=== PATIENT | male | born 1945 | race Caucasian/White ===

== ENCOUNTER → 2022-03-24 | Outpatient (CLI) | payer MEDICARE, BC ==
--- NOTE | 2022-03-24 09:23 | CT ---
EXAMINATION TYPE: CT chest wo con CT DLP: 361 mGycm, Automated exposure control for dose reduction was used. DATE OF EXAM: 03/24/2022 8:55 AM COMPARISON: None. CLINICAL INDICATION:Male, 76 years old with history of R91.1 lung nodule; TECHNIQUE: Multiple axial images were obtained through the chest without IV contrast. Lack of IV or o ral contrast limits evaluation of solid and hollow organ viscera. FINDINGS: LUNGS/ PLEURA: Biapical pleural-parenchymal scarring. Scattered left upper lobe reticular opacities a nd lingular scarring. Right lower lobe 1 cm nodular density (series 4, image 41). 6 mm groundglass no dule along the right minor fissure favored to represent intrafissural lymph node (series 4, image 33) . Posterior right upper lobe calcified plaque. No pneumothorax or pleural effusion. Mild centrilobul ar emphysematous changes. AIRWAY: Patent and unremarkable.. HEART: Size within normal limits. No pericardial effusion. Three-vessel coronary artery calcification s identified.. MEDIASTINUM: No gross evidence of adenopathy. VASCULATURE: No aortic aneurysm. Atherosclerotic calcification of the aorta and its branches. MUSCULOSKELETAL: No acute osseous abnormalities. Mild degenerative changes of the spine SOFT TISSUES/LYMPH NODES: No axillary lymphadenopathy. Bilateral gynecomastia. LOWER NECK: No significant findings. UPPER ABDOMEN: Hepatic cysts measuring up to 1.5 cm. Post cholecystectomy. Colonic diverticulosis wit hout evidence for acute diverticulitis. IMPRESSION: 1. Scattered left upper lobe reticular opacities with right lower lobe 1 cm nodular density. Findings likely relate to an infectious/inflammatory process. Consider follow-up CT chest in 6-12 months. 2. Mild emphysematous changes. 3. Colonic diverticulosis without evidence for acute diverticulitis.
== END | disposition home or self-care (01) ==
LOC: RADCTMAIN 08:32
PROVIDERS: ATTEND Internal Medicine
DX: R91.1 Solitary pulmonary nodule (principal)
CPT/HCPCS: 71250

== ENCOUNTER → 2022-05-06 | Outpatient (CLI) | payer MEDICARE, BC | END | disposition home or self-care (01) | LOC: RADXRMAIN 07:23 | PROVIDERS: ATTEND Internal Medicine Critical Care Medicine | DX: Z53.9 Procedure and treatment not carried out, unspecified reason (principal) ==

== ENCOUNTER → 2022-05-20 | Outpatient (CLI) | payer MEDICARE, BC ==
--- NOTE | 2022-05-23 06:39 | PE ---
EXAMINATION TYPE: PET CT fusion skull to thigh DATE OF EXAM: 05/20/2022 COMPARISON: Chest CT March 24, 2022 HISTORY: Abnormal CT, solitary pulmonary nodule. TECHNIQUE: Following the intravenous administration of 11.76 mCi of F-18 FDG, whole body images are performed from the skull base to the midthigh. Images are reviewed on the computer in the coronal, a xial, and sagittal planes. Reconstructed rotating images are created on independent workstation and reviewed on the computer. A localization and attenuation correction CT is performed in conjunction with the PET scan. Blood glucose level = 41 SCAN: Initial Scan FINDINGS: SKULL BASE AND NECK: No areas of abnormal hypermetabolic uptake. CHEST, MEDIASTINUM, AND HILAR REGION: Mild to moderate biapical pleural/parenchymal scarring redemons trated. Stable 1.1 x 0.6 cm groundglass nodule posterior right lower lobe axial image 109 is ametabol ic. Dependent atelectasis current study. No areas of abnormal hypermetabolic uptake. ABDOMEN AND PELVIS: Normal excretion. Nonspecific bowel uptake. No adrenal masses. No abnormal hyperm etabolic uptake. OSSEOUS STRUCTURES: No abnormal hypermetabolic uptake. OTHER CT: Mild to moderate calcified plaque bilateral carotid bulb level. Moderate to severe coronary artery calcification. Cholecystectomy clips are seen. There is 1.1 cm hypodense lesion in the liver axial image 159 favorin g benign thin-walled cyst. Moderate to severe calcified plaque of the aorta extends into branch vesse ls fecal prominent cecum. Diverticula in the left and sigmoid colon. Mildly enlarged prostate consist ent with BPH. Moderate-sized fat-containing bilateral inguinal hernias. Disc space narrowing with vac uum disc phenomenon at lumbosacral junction. IMPRESSION: No areas of abnormal hypermetabolic uptake to suggest malignancy. Advise CT and/or PET CT follow-up in 6-12 months time to document stability of right lower lobe lesion.
== END | disposition home or self-care (01) ==
LOC: RADXRMAIN 10:32
PROVIDERS: ATTEND Internal Medicine Critical Care Medicine
DX: R91.1 Solitary pulmonary nodule (principal)
CPT/HCPCS: 78815; A9552

== ENCOUNTER → 2022-07-08 | Outpatient (CLI) | payer MEDICARE, BC ==
--- NOTE | 2022-07-08 14:20 | XR ---
EXAMINATION TYPE: XR Hip Bilateral and AP pelvis DATE OF EXAM: 07/08/2022 COMPARISON: Prior PET/CT May 20, 2022 HISTORY: Pelvic and bilateral hip pain for 3 to 4 years. TECHNIQUE: A single AP view of the pelvis is obtained. Two views of the bilateral hips are obtained. FINDINGS: There is no acute fracture/dislocation evident in the pelvis. The sacroiliac joints appea r symmetric and unremarkable. Pubic symphysis is intact. Prominent left-sided pelvic phleboliths rede monstrated. Two views of bilateral hip show no acute fracture or dislocation. No focal lytic or sclerotic lesion seen in the proximal femurs bilaterally. There is moderate to severe axial joint space loss in both hips with moderate acetabular spurring bilaterally redemonstrated. The overlying soft tissue is unre markable bilaterally. IMPRESSION: As above.
== END | disposition home or self-care (01) ==
LOC: RADXRMAIN 13:37
PROVIDERS: ATTEND Internal Medicine
DX: M25.551 Pain in right hip (principal); M25.552 Pain in left hip; R10.2 Pelvic and perineal pain
CPT/HCPCS: 73521

== ENCOUNTER → 2022-12-12 | Outpatient (CLI) | payer MEDICARE, BC ==
--- NOTE | 2022-12-12 14:37 | CT ---
EXAMINATION TYPE: CT chest w con DATE OF EXAM: 12/12/2022 COMPARISON: 03/24/2022 HISTORY: lung nodule CT DLP: 306.9 mGycm Automated exposure control for dose reduction was used. CONTRAST: CT scan of the chest is performed with IV Contrast, patient injected with 100 mL of Isovue 300. FINDINGS: LUNGS: 9.5 mm pulmonary nodule right lower lobe image 39 sequence 4 is stable. There is a 2 mm nodula r density right minor fissure image 37 sequence 4. Scattered subpleural fibrosis at the lung bases mi ld in degree and stable. No evidence for focal consolidation or volume loss. MEDIASTINUM: There are no greater than 1 cm hilar or mediastinal lymph nodes. No pericardial effusi on is seen. Thoracic aorta is of normal caliber. The heart is not enlarged. UPPER ABDOMEN: Stable renal cystic changes. OTHER: No additional significant abnormality is seen. IMPRESSION: 1. Stable pulmonary nodularity. No new nodules seen.
== END | disposition home or self-care (01) ==
LOC: RADCTMAIN 12:01
PROVIDERS: ATTEND Internal Medicine Critical Care Medicine
DX: R91.1 Solitary pulmonary nodule (principal)
CPT/HCPCS: 82565; 84520; 71260; 36415; Q9967

== ENCOUNTER → 2023-02-01 | Outpatient (CLI) | payer MEDICARE, BC ==
--- NOTE | 2023-02-01 12:38 | XR ---
EXAMINATION TYPE: XR sacrum coccyx DATE OF EXAM: 02/01/2023 12:12 PM INDICATION: Patient age:Male; 77 years old; Reason for study: W19.XXXA unspecified fall; COMPARISON: None TECHNIQUE: The sacrum and coccyx was examined in frontal and lateral projections. FINDINGS: There is no evidence of fracture or dislocation. There is no soft tissue abnormality. No a bnormal calcifications are present. Multilevel degenerative changes of the lower spine. Degeneration changes of the sacroiliac joints. There is gapping of the coccyx and sacrum. No discrete acute fractu re line visualized. IMPRESSION: There is gapping of the coccyx and sacrum unclear whether this is acute or chronic. No discrete acute fracture line visualized.
== END | disposition home or self-care (01) ==
LOC: RADXRMAIN 11:49
PROVIDERS: ATTEND Internal Medicine
DX: M53.3 Sacrococcygeal disorders, not elsewhere classified (principal); W19.XXXA Unspecified fall, initial encounter
CPT/HCPCS: 72220

== ENCOUNTER → 2023-11-10 | Outpatient (CLI) | payer MEDICARE ==
[2023-11-10 13:04] LABS: Basophils # (A) 0.1 k/uL (0-0.2); Basophils % (A) 1 %; Eosinophils # (A) 0.2 k/uL (0-0.7); Eosinophils % (A) 3 %; HCT 41.9 % (39.0-53.0); HGB 13.2 gm/dL (13.0-17.5); Lymphocytes # (A) 1.7 k/uL (1.0-4.8); Lymphocytes % (A) 26 %; MCH 28.7 pg (25.0-35.0); MCHC 31.4 g/dL (31.0-37.0); MCV 91.3 fL (80.0-100.0); Monocytes # (A) 0.4 k/uL (0-1.0); Monocytes % (A) 5 %; Neutrophils # (A) 4.2 k/uL (1.3-7.7); Neutrophils % (A) 63 %; Platelet Count 196 k/uL (150-450); RBC 4.59 m/uL (4.30-5.90); RDW 14.4 % (11.5-15.5); WBC 6.6 k/uL (3.8-10.6)
[2023-11-10 13:21] LABS: Calcium 9.5 mg/dL (8.4-10.2)
[2023-11-10 13:30] LABS: T4, Free (Free Thyroxine) 1.1 ng/dL (0.78-2.19)
[2023-11-10 16:48] LABS: Protein, Total 7.2 g/dL (6.2-8.2)
== END | disposition home or self-care (01) ==
LOC: LABWHC1 12:40
PROVIDERS: ATTEND Internal Medicine
DX: E03.9 Hypothyroidism, unspecified (principal); E83.52 Hypercalcemia
CPT/HCPCS: 36415; 82306; 82310; 82330; 82652; 83970; 84165; 84439; 84443; 85025

== ENCOUNTER 2024-06-07 16:12 | Emergency (ER) | payer MEDICARE, BC ==
[2024-06-07 16:22] VITALS: TEMP 97.5
--- NOTE | 2024-06-07 17:37 | CT ---
EXAMINATION TYPE: CT brain aneesh wo con DATE OF EXAM: 06/07/2024 4:55 PM COMPARISON: None. CLINICAL INDICATION: Male, 78 years old with history of fall, Fall, left shoulder pain TECHNIQUE: CT of the brain is performed utilizing 3 mm thick sections through the posterior fossa and 3 mm thick sections through the remaining calvarium. Study is performed within 24 hours of arrival to the hospital. Contrast used: mL of , (none if empty) CT DLP: 1569 mGycm, Automated exposure control for dose reduction was used. FINDINGS: No abnormal hyperdensity is present to suggest an acute intracranial hemorrhage. No mass lesion is evident. No acute infarcts are evident. Ventricles and sulci are prominent for the patient age. Paranasal sinuses and mastoid air cells within the [id number] are clear. IMPRESSIONS: 1. No acute intracranial process. Follow-up MRI can be performed as clinically indicated. 2. atrophy CT cervical spine. COMPARISON: None TECHNIQUE: CT of the cervical spine is performed in the axial plane at 2 mm thick sections. Reconstr ucted images in the coronal, and sagittal plane are reviewed on the computer. FINDINGS: No acute fractures are evident. Vertebral body alignment is normal. There is degenerative loss of disc height throughout the cervical spine. Prevertebral space is normal . Posterior spinal lamellar line appears intact. Vertebral body heights are preserved. No spinal canal stenosis is evident. Facet hypertrophy and uncovertebral hypertrophy is present C3-4 with foraminal stenosis. Severe emerita inal stenosis is present C5-6 bilaterally IMPRESSION: 1. No acute osseous abnormality cervical spine. 2. Degenerative disc changes. 3. Foraminal stenosis greatest at C5-6 and C3-4. [facility], , 06/07/2024 5:35 PM
--- NOTE | 2024-06-07 17:45 | XR ---
EXAMINATION TYPE: XR shoulder complete LT DATE OF EXAM: 06/07/2024 4:58 PM COMPARISON: None. CLINICAL INDICATION: Male, 78 years old with history of fall, TECHNIQUE: XR shoulder complete LT view(s) obtained. FINDINGS: The humeral head articulates with the glenoid. The acromio-clavicular junction is normal. There is a fracture through the surgical neck with displacement of the distal fracture fragment. A follow up study can be performed 7-10 days from acute trauma for continued pain. MRI can be perfor med if soft tissue evaluation would be of benefit. IMPRESSION: 1. Fracture of the surgical neck with displacement of the distal fracture fragment from the humeral n pooja. [facility], , 06/07/2024 5:43 PM
[2024-06-07] MEDS: MORPHINE SULFATE 4 MG/ML SYRINGE IM STA (17:59)
--- NOTE | 2024-06-07 18:07 | ED ---
General Adult HPI - General Chief complaint: Extremity Injury, Upper Stated complaint: fall Time Seen by Provider: 06/07/24 16:25 Source: patient, EMS Mode of arrival: EMS - History of Present Illness Initial comments: 78-year-old male presenting for evaluation post fall. Patient fell off of a single step landing onto the left shoulder. Patient has been drinking today, he reports that he drinks 3 mixed drinks. He denies any head injury, loss of consciousness, or use of blood thinners. He has significant pain and deformity at the level of the left shoulder. He still able to move the fingers and wrist. - Related Data Previous Rx's Medication Instructions Recorded Acetaminophen-Codeine 300-30mg 1 tab PO Q6H PRN 3 Days #12 tablet 06/07/24 [Tylenol w/codeine #3] Allergies Allergy/AdvReac Type Severity Reaction Status Date / Time No Known Allergies Allergy Verified 06/07/24 16:22 Review of Systems ROS Statement: Those systems with pertinent positive or pertinent negative responses have been documented in the HPI. ROS Other: All systems not noted in ROS Statement are negative. Past Medical History Past Medical History: COPD, Diabetes Mellitus, Hyperlipidemia Additional Past Medical History / Comment(s): barrets esophagus Past Surgical History: Cholecystectomy, Heart Catheterization With Stent, Tonsillectomy Smoking Status: Former smoker Past Alcohol Use History: Heavy Past Drug Use History: None Reported General Exam General appearance: alert, appears intoxicated Head exam: Present: atraumatic, normocephalic, normal inspection Eye exam: Present: normal appearance, PERRL, EOMI Neck exam: Present: normal inspection. Absent: meningismus Respiratory exam: Absent: respiratory distress Cardiovascular Exam: Present: regular rate Left Shoulder Exam: Present: tenderness, swelling, deformity. Absent: normal inspection, full ROM Vascular: Absent: vascular compromise Neurological exam: Present: alert, oriented X3 Psychiatric exam: Present: agitated Skin exam: Present: normal color Course Vital Signs 06/07/24 06/07/24 16:14 18:32 Temperature 97.5 F L Pulse Rate 65 73 Respiratory 18 20 Rate Blood Pressure 153/71 130/71 O2 Sat by Pulse 100 96 Oximetry Medical Decision Making - Medical Decision Making Was pt. sent in by a medical professional or institution (, PA, BODY MAKER, urgent care, hospital, or halfway...) When possible be specific @ -No Did you speak to anyone other than the patient for history (EMS, parent, family, police, friend...)? What history was obtained from this source @ -No Did you review nursing and triage notes (agree or disagree)? Why? @ -I reviewed and agree with nursing and triage notes Were old charts reviewed (outside hosp., previous admission, EMS record, old EKG, old radiological studies, urgent care reports/EKG's, halfway records)? Report findings @ -No old charts were reviewed Differential Diagnosis (chest pain, altered mental status, abdominal pain women, abdominal pain men, vaginal bleeding, weakness, fever, dyspnea, syncope, headache, dizziness, GI bleed, back pain, seizure, CVA, palpatations, mental health, musculoskeletal)? @ -Differential Musculoskeletal Muscular strain, contusion, ligament sprain, fracture, arthritis, septic arthritis, bursitis, cellulitis, muscle spasm, nerve compression, DVT, arterial occlusion, herpes zoster, electrolyte abnormality, tumor.... This is not meant to be in all inclusive list EKG interpreted by me (3pts min.). @ -As above X-rays interpreted by me (1pt min.). @ -X-ray shows fracture of the surgical neck with displacement of the distal fracture fragment from the humeral neck CT interpreted by me (1pt min.). @ -CT shows no acute intracranial process. There is atrophy noted. No acute osseous abnormality of the cervical spine. Degenerative disc changes. Foraminal stenosis greatest at C5-6 and C3-4 U/S interpreted by me (1pt. min.). @ -None done What testing was considered but not performed or refused? (CT, X-rays, U/S, labs)? Why? @ -None What meds were considered but not given or refused? Why? @ -None Did you discuss the management of the patient with other professionals (professionals i.e. Dr., PA, BODY MAKER, lab, RT, psych nurse, social worker palliative care, casing cleaner, teacher, plant protection officer, onsite case manager)? Give summary @ -No Was smoking cessation discussed for >3mins.? @ -No Was critical care preformed (if so, how long)? @ -No Were there social determinants of health that impacted care today? How? (Homelessness, low income, unemployed, alcoholism, drug addiction, transportation, low edu. Level, literacy, decrease access to med. care, detention, rehab)? @ -No Was there de-escalation of care discussed even if they declined (Discuss DNR or withdrawal of care, Hospice)? DNR status @ -No What co-morbidities impacted this encounter? (DM, HTN, Smoking, COPD, CAD, Cancer, CVA, ARF, Chemo, Hep., AIDS, mental health diagnosis, sleep apnea, morbid obesity)? @ -None Was patient admitted / discharged? Hospital course, mention meds given and route, prescriptions, significant lab abnormalities, going to OR and other pertinent info. @ -78-year-old male presenting for evaluation post fall. Patient has been drinking today. He has significant deformity of the left shoulder. X-rays positive for fracture of the surgical neck. Negative CT of the brain and cervical spine. Patient's and daughter now at bedside. Patient lives with his and his daughter lives very close by, they feel confident they can care for him at home. He will follow-up with orthopedics this week. Sling is provided. Educated on supportive management and alarm symptoms. Discharged. Follow-up with PCP. Report back to ER with any new or worsening symptoms. Discussed return parameters and answered all questions. Patient and family conveyed verbal understanding and agreed to the plan. I discussed this case in detail with my attending Dr. Gomez Undiagnosed new problem with uncertain prognosis? @ -No Drug Therapy requiring intensive monitoring for toxicity (Heparin, Nitro, Insulin, Cardizem)? @ -No Were any procedures done? @ -No Diagnosis/symptom? @ -Proximal humerus fracture Acute, or Chronic, or Acute on Chronic? @ -Acute Uncomplicated (without systemic symptoms) or Complicated (systemic symptoms)? @ -Uncomplicated Side effects of treatment? @ -No Exacerbation, Progression, or Severe Exacerbation? @ -No Poses a threat to life or bodily function? How? (Chest pain, USA, CT, pneumonia, PE, COPD, DKA, ARF, appy, cholecystitis, CVA, Diverticulitis, Homicidal, Suicidal, threat to staff... and all critical care pts) @ -Threat to function without proper follow-up Disposition Clinical Impression: Fracture of humerus Disposition: HOME SELF-CARE Condition: Good Instructions (If sedation given, give patient instructions): Proximal Humerus Fracture (ED) Additional Instructions: Follow-up with orthopedics. Report back to ER with any new or worsening symptoms. Keep your arm in the sling. Ice the shoulder as needed. Prescriptions: Acetaminophen-Codeine 300-30mg [Tylenol w/codeine #3] 1 tab PO Q6H PRN 3 Days #12 tablet PRN Reason: Pain Is patient prescribed a controlled substance at d/c from ED?: Yes When asked, does pt state using other controlled substances?: No If prescribed controlled substance>3 days was MAPS reviewed?: Prescribed <3 Days If opioid is for acute pain is fill amount 7 days or less?: Yes Referrals: Joel Reed DO [Primary Care Provider] - 1-2 days Dejuan Pierce DO [Doctor of Osteopathic Medicine] - 1-2 days Time of Disposition: 18:03
[2024-06-07] MEDS: ACET/COD 300 MG/30 MG STARTER PACK 6 TAB BTL PO STA (18:25)
[2024-06-07 18:34] VITALS: BP 130/71; PULSE 73; RESP 20
== END 2024-06-07 18:34 | disposition home or self-care (01) ==
LOC: EC 16:12
DX: S42.212A Unspecified displaced fracture of surgical neck of left humerus, initial encounter for closed fracture (principal); R10.9 Unspecified abdominal pain; Z87.891 Personal history of nicotine dependence; W10.9XXA Fall (on) (from) unspecified stairs and steps, initial encounter
CPT/HCPCS: 99284; 96372; 73030; 72125; 70450; J2270